=== PATIENT | female | born 1995 | race Asian ===

== ENCOUNTER 2022-01-03 17:18 | Emergency (ER) | payer MEDICAID ==
[~2022-01-03] VITALS: Ht 157.5 cm; Wt 71.0 kg
[2022-01-03 17:27] VITALS: BP 119/87
--- NOTE | 2022-01-03 18:31 | PHYS DOC ---
Past Medical History Past Surgical History: General Adult EDM: Chief Complaint: EYE PROBLEMS HPI: HPI: Patient is a 26-year-old female who presents to the emergency department complaining of irritated eyes, waking up with eyes matted shut, sore throat with swelling for the past 15 days. Patient reports she has been using [id number] allergy eyedrops without relief in symptoms. Patient states she does have a primary care physician however has not seen him for the symptoms. Patient denies fever or chills at home. Denies headaches, denies chest or nasal congestion. Patient reports her last menstrual cycle was 2 or 3 months ago stating she has intermittent menstrual cycles since having her Implanon placed. Patient denies abdominal pain, nausea, vomiting, or diarrhea. Patient denies other physical complaints or physical concerns. Review of Systems: Review of Systems: 14 body systems of review of systems have been reviewed. See HPI for pertinent positives and negative responses, otherwise all other systems are negative, nonpertinent or noncontributory. Constitutional: Negative except as outlined in HPI above. Skin: Negative except as outlined in HPI above. Eyes: Negative except as outlined in HPI above. HENT: Negative except as outlined in HPI above. Respiratory: Negative except as outlined in HPI above. Cardiovascular: Negative except as outlined in HPI above. GI: Negative except as outlined in HPI above. : Negative except as outlined in HPI above. Musculoskeletal: Negative except as outlined in HPI above. Integument: Negative except as outlined in HPI above. Neurologic: Negative except as outlined in HPI above. Endocrine: Negative except as outlined in HPI above. Lymphatic: Negative except as outlined in HPI above. Psychiatric: Negative except as outlined in HPI above. Heart Score: C/O Chest Pain: No Risk Factors: Risk Factors: DM, Current or recent (<one month) smoker, HTN, HLP, family history of CAD, obesity. Risk Scores: Score 0 - 3: 2.5% MACE over next 6 weeks - Discharge Home Score 4 - 6: 20.3% MACE over next 6 weeks - Admit for Clinical Observation Score 7 - 10: 72.7% MACE over next 6 weeks - Early Invasive Strategies Physical Exam: PE: Constitutional: Well developed, well nourished, no acute distress, non-toxic appearance. 26-year-old female in no apparent distress. HENT: Normocephalic, atraumatic. Anterior cervical lymphadenopathy, bilateral submental lymphadenopathy appreciated, no other lymphadenopathy of the head or neck appreciated oropharynx pink, erythematous bilateral tonsils with cobblestoning with exudative drainage, there is no laryngeal edema, there is erythema to the uvula without uvular deviation or edema. There is no postnasal drip appreciated. Bilateral TMs intact and within normal limits. Eyes: No discharge appreciated, bilateral erythematous conjunctiva. PERRLA satisfactory 6 cardinal eye movements. Neck: Normal range of motion, no stridor. No nuchal rigidity, no meningismus signs. Cardiovascular: No cyanosis appreciated, distal cap refill less than 2 seconds. Lungs & Thorax: Patient is in no respiratory distress, no audible adventitious lung sounds appreciated. Lung sounds are clear to auscultation all lung m[place]. Normal work of breathing. Abdomen: Nontender, no abnormalities noted. Skin: Warm, dry, no erythema, no rash. Back: No tenderness, no deformities. Extremities: No tenderness, no cyanosis, no clubbing, ROM intact, no edema. Neurologic: Alert and oriented X 3, normal motor function, normal sensory function, no focal deficits noted. Psychologic: Affect normal, judgement normal, mood normal. Current Patient Data: Labs: Laboratory Tests Test 01/03/22 18:53 Influenza Type A Antigen Negative Influenza Type B Antigen Negative SARS-CoV-2 Antigen (Rapid) Negative Vital Signs: Vital Signs Date Time Temp Pulse Resp B/P (MAP) Pulse Ox O2 Delivery O2 Flow Rate FiO2 01/03/22 17:27 99.0 97 16 119/87 (98) 100 Room Air 99.0 EKG: EKG: [] Radiology/Procedures: Radiology/Procedures: [] Course & Med Decision Making: Course & Med Decision Making Pertinent Labs and Imaging studies reviewed. (See chart for details) 26-year-old female, vital signs reviewed, presents to the emergency department concerning sore throat with swollen tonsils, waking up with eyes matted shut, drainage from eyelids, symptoms for the past 15 days. Per Centor score will prophylactically treat for strep pharyngitis, we will also treat conjunctivitis, we will draw rapid COVID testing. Rapid COVID testing negative, discussed findings with patient, antibiotic therapy, side effects, strict follow-up with primary care physician Dr. Lund this coming week for ongoing evaluation. Return to ER precaution and concerns were reviewed patient gave verbal understanding of and is amenable to ED discharge planning. Discussed with the patient all findings and diagnostic testing as well as the need to follow-up with their primary care provider for further evaluation and treatment or return to the ED if any new or worsening symptoms. Strict return precautions were also discussed at length, the patient voiced understanding and agreement with the discharge planning. The patient was nontoxic in appearance, in no apparent distress, and hemodynamically stable at the time of disposition. Dragon Disclaimer: Dragrodney Disclaimer: This electronic medical record was generated, in whole or in part, using a voice recognition dictation system. Departure Departure Impression: Primary Impression: Sore throat Additional Impression: Conjunctivitis Qualified Codes: H10.9 - Unspecified conjunctivitis Disposition: HOME / SELF CARE / HOMELESS Condition: GOOD Patient Instructions: Conjunctivitis (Viral and Bacterial), Strep Throat Additional Instructions: You were seen today in the emergency department for's Boline sore throat and draining eyes for the past 15 days. A COVID test was drawn today and was negati ve. As we discussed I am starting you on an oral antibiotic and eyedrops that you will take as directed until complete. The oral antibiotic is twice a day for the next 10 days, the eyedrops you will place 1 drop every 3 hours into each eye for the next 10 days. Please follow-up with Dr. Lund this week. I have also added information to this document for an eye doctor, please follow-up with an eye doctor if your symptoms do not resolve within the next 2 to 3 days. Thank you for visiting our Emergency Department. It was a pleasure taking care of you today in the emergency department and we appreciate you trusting us with your care. If any additional problems come up don't hesitate to return to visit us. Please follow up with your primary care provider so they can plan additional care if needed and know about the problem that you had. If symptoms worsen come back to the Emergency Department. Any concerning symptoms that start such as chest pain, shortness of air, weakness or numbness on one side of the body, running high fevers or any other concerning symptoms return to the ER. Scripts Amoxicillin (AMOXICILLIN) 500 Mg Capsule 1 CAP PO BID, #20 CAP 0 Refills Prov: NIELS IRENE APRN 01/03/22 Polymyxin B Sulf/Trimethoprim (POLYTRIM EYE DROPS) 10 Ml Drops 1 DROP EACHEYE Q3HRS for conjunctivitis for 10 Days, #10 ML Prov: NIELS IRENE APRN 01/03/22 NIELS IRENE APRN January 03, 2022 18:31
[2022-01-03 19:14] LABS: INFLUENZA A PATIENT NEGATIVE (NEGATIVE); INFLUENZA B PATIENT NEGATIVE (NEGATIVE)
[2022-01-03] MEDS ORDERED: AMOX500C PO (19:51)
[2022-01-03] MEDS ORDERED: POLY10DR EACHEYE (19:51)
== END 2022-01-03 20:04 | disposition home or self-care (01) ==
LOC: ER 17:18
DX: H10.9 Unspecified conjunctivitis (principal); J02.9 Acute pharyngitis, unspecified; Z20.822 Contact with and (suspected) exposure to COVID-19
CPT/HCPCS: 87428; 99283